=== PATIENT | male | born 1985 | race Caucasian/White ===

== ENCOUNTER 2019-11-05 14:29 | Emergency (ER) | payer OTHER ==
[~2019-11-05] VITALS: Ht 170.2 cm; Wt 81.7 kg
[2019-11-05] MEDS ORDERED: PROAIR HFA8.5 GM INH (14:40)
[2019-11-05] MEDS ORDERED: KEFLEX500 M1 PO (17:34)
[2019-11-05 18:13] VITALS: BP 133/85
== END 2019-11-05 18:18 | disposition home or self-care (01) ==
LOC: ER 14:29
DX: S01.01XA Laceration without foreign body of scalp, initial encounter (principal); J45.909 Unspecified asthma, uncomplicated; Z79.899 Other long term (current) drug therapy; V00.131A Fall from skateboard, initial encounter; Y93.51 Activity, roller skating (inline) and skateboarding; Y92.89 Other specified places as the place of occurrence of the external cause; Y99.8 Other external cause status